=== PATIENT | male | born 1960 | race Caucasian/White ===

== ENCOUNTER → 2023-10-29 | Outpatient (CLI) | payer BC ==
[2023-10-29 15:44] LABS: Hematocrit 43.7 % (37.0-53.0); Hemoglobin 14.9 g/dL (13.5-17.5); Mean Corpuscular HGB 30.3 pg (26.0-34.0); Mean Corpuscular HGB Conc 34.1 g/dL (31.5-36.5); Mean Corpuscular Volume 89 fL (80-100); Mean Platelet Volume 10.3 fL (9.1-12.4); Platelet Count 256 K/mm3 (150-400); RDW Coefficient Variation 12.6 % (11.7-14.2); RDW Standard Deviation 40.9 fL (35.1-46.3); Red Blood Cell Count 4.91 M/mm3 (4.30-5.90); White Blood Cell Count 4.82 K/mm3 (4.00-11.30)
[2023-10-29 16:26] LABS: CHOL/HDL RATIO 3.8; Cholesterol 215 mg/dL (50-200); Ferritin, Serum 147 ng/mL (26-388); HDL Cholesterol 56 mg/dL (>39); Iron Serum 151 ug/dL (65-175); LDL/HDL RATIO 2.3; Low Density Lipoprotein Chol 130 mg/dL (0-110); Percent Saturation 38.5 % (20.0-50.0); Total Iron Binding Capacity 392 ug/dL (250-450); Triglycerides 146 mg/dL (30-160); Very Low Density Lipoprot Chol 29 mg/dL (6-32)
[2023-10-30 08:11] LABS: A/G RATIO 2.8 (1.2-2.2); BILIRUBIN, TOTAL 0.5 mg/dL (0.0-1.2); CALCIUM, SERUM 9.9 mg/dL (8.6-10.2); CREATININE, SERUM 0.97 mg/dL (0.76-1.27); GLOBULIN, TOTAL 1.8 g/dL (1.5-4.5); PROTEIN, TOTAL, SERUM 6.8 g/dL (6.0-8.5)
== END ==
LOC: LAB 14:21 → LAB SHORT 14:21
PROVIDERS: Internal Medicine
DX: Z12.5 Encounter for screening for malignant neoplasm of prostate (principal); G25.81 Restless legs syndrome; E78.2 Mixed hyperlipidemia; I10 Essential (primary) hypertension
CPT/HCPCS: 80053; 80061; 82728; 83540; 83550; 85027; G0103